=== PATIENT | female | born 1965 ===

== ENCOUNTER 2016-06-29 12:11 | Emergency (ER) | payer OTHER ==
[2016-06-29 12:18] VITALS: BMI 41.1
[2016-06-29] MEDS ORDERED: Sodium Chloride 0.9% 500 ML IV STA (12:57)
[2016-06-29] MEDS ORDERED: Sodium Chloride 0.9% 1,000 ML ONE (13:10)
[2016-06-29 13:14] LABS: BASO # 0.1 K/uL (0.0-0.2); BASO % 0.8 % (0.0-2.0); EOS # 0.2 K/uL (0.0-0.7); EOS % 1.9 % (0.0-4.0); HEMATOCRIT 38.2 % (34.0-47.0); LYMPH # 1.8 K/uL (1.0-4.3); LYMPH % 20.6 % (20.0-40.0); MEAN CELL VOLUME 84.5 fL (81.0-99.0); MEAN CORPUSCULAR HEMOGLOBIN 27.5 pg (27.0-31.0); MEAN CORPUSCULAR HGB CONC 32.6 g/dL (33.0-37.0); MEAN PLATELET VOLUME 9.3 fL (7.2-11.7); MONO # 0.5 K/uL (0.0-0.8); MONO % 5.9 % (0.0-10.0); WHITE BLOOD COUNT 8.8 K/uL (4.8-10.8)
[2016-06-29 13:22] LABS: CHLORIDE 101 mmol/L (98-107)
[2016-06-29 13:23] LABS: SODIUM 138 mmol/L (132-148)
[2016-06-29 13:25] LABS: ALB/GLOB RATIO 0.9 (1.0-2.1); ALKALINE PHOSPHATASE 122 U/L (38-126); ALT/SGPT 71 U/L (9-52); AST/SGOT 79 U/L (14-36); BILIRUBIN,TOTAL 0.6 mg/dL (0.2-1.3); BLOOD UREA NITROGEN 14 mg/dL (7-17); CARBON DIOXIDE 26 mmol/L (22-30); GFR AFRICAN-AMERICAN > 60; GLUCOSE,RANDOM 89 mg/dL (65-105); TOTAL PROTEIN 8.6 g/dL (6.3-8.3)
[2016-06-29 13:26] LABS: CALCIUM 8.7 mg/dl (8.6-10.4)
--- NOTE | 2016-06-29 14:02 | RAD ---
PROCEDURE: Radiographs of the Lumbar Spine. HISTORY: severe LBP, radiating R leg, leg weakness COMPARISON: No prior. FINDINGS: BONES: Normal alignment. No listhesis. No fracture. DISC SPACES: Unremarkable. OTHER FINDINGS: None. IMPRESSION: Unremarkable radiographs of the lumbar spine.
--- NOTE | 2016-06-29 14:10 | C.PDOC ---
History Of Present Illness 51 y/o female presents to the ED with complains of sudden lower back pain. Pt was walking this morning when she suddenly had severe lower back pain radiating to left side and down left leg. Pt was able to walk a few steps after when leg became weak, she was unable to walk after that. Pt denies any urinary symptoms, incontinence, numbness, chest pain, SOB, vomiting, headache or any other complaints. Time Seen by Provider: 06/29/16 12:35 Chief Complaint (Nursing): Lower Extremity Problem/Injury History Per: Patient History/Exam Limitations: no limitations Onset/Duration Of Symptoms: Hrs, Sudden Onset Current Symptoms Are (Timing): Still Present Severity: Severe Recent travel outside of the [place]: No Past Medical History Reviewed: Historical Data, Nursing Documentation, Vital Signs Vital Signs: Last Vital Signs Temp 97.8 F 06/29/16 17:20 Pulse 81 06/29/16 17:20 Resp 18 06/29/16 17:20 BP 118/78 06/29/16 17:20 Pulse Ox 95 06/29/16 17:57 Surgical History: Family History: States: Unknown Family Hx - Social History Hx Tobacco Use: No Hx Alcohol Use: No Hx Substance Use: No - Immunization History Hx Tetanus Toxoid Vaccination: No Hx Influenza Vaccination: No Hx Pneumococcal Vaccination: No Review Of Systems Except As Marked, All Systems Reviewed And Found Negative. Constitutional: Negative for: Fever Cardiovascular: Negative for: Chest Pain Respiratory: Negative for: Shortness of Breath Gastrointestinal: Negative for: Vomiting Genitourinary: Negative for: Dysuria, Frequency, Incontinence Neurological: Positive for: Weakness (left leg). Negative for: Numbness, Headache Physical Exam - Physical Exam Appears: Non-toxic, No Acute Distress Skin: Warm, Dry, No Rash Head: Atraumatic, Normacephalic Neck: Normal, Normal ROM, Supple Chest: Symmetrical Cardiovascular: Rhythm Regular Respiratory: Normal Breath Sounds, No Rales, No Rhonchi, No Wheezing Gastrointestinal/Abdominal: Soft, No Tenderness Back: Vertebral Tenderness (LS spine area), Paraspinal Tenderness (left LS spine area), Straight Leg Raising (unable to perform due to patient refusing to move her left leg) Extremity: Tenderness (left buttock) Neurological/Psych: Oriented x3, Normal Speech, Normal Cognition, No Normal Motor (decreased motor to left leg), No Normal Sensation (decreased sensation to left leg) ED Course And Treatment - Laboratory Results Result Diagrams: 06/29/16 13:12 06/29/16 13:12 O2 Sat by Pulse Oximetry: 95 (room air) Pulse Ox Interpretation: Normal - Other Rad XR L spine Interpretation: Accession No. : [id number]. Patient Name / ID : DENYS GALE / [id number]. Exam Date : 06/29/2016 13:06:36 ( Approved ). Study Comment : Sex / Age : F / 51Y. Creator : LUTHER CEE. Dictator : Lazaro Wen MD. Certified Drug Counselor : Therapeutic Specialist : Lazaro Wen MD. Approver2 : Report Date : 06/29/2016 13:36:01. My Comment : . PROCEDURE: Radiographs of the Lumbar Spine. HISTORY: severe LBP, radiating R leg, leg weakness. COMPARISON: No prior. FINDINGS: BONES: Normal alignment. No listhesis. No fracture. DISC SPACES: Unremarkable. OTHER FINDINGS: None. IMPRESSION: Unremarkable radiographs of the lumbar spine. - CT Scan/US MRI L spine Other Rad Studies (CT/US): Read By Radiologist, Radiology Report Reviewed CT/US Interpretation: Accession No. : [id number]. Patient Name / ID : DENYS GALE / [id number]. Exam Date : 06/29/2016 15:27:51 ( Approved ). Study Comment : Sex / Age : F / 51Y. Creator : armida rodríguez Dictator : Serg Pelayo. Certified Drug Counselor : Therapeutic Specialist : Serg Pelayo. Approver2 : Report Date : 06/29/2016 15:53:58. My Comment : . PROCEDURE: MR LUMBAR SPINE WITHOUT CONTRAST. HISTORY: LEFT LEG WEAKNESS, LB PAIN. COMPARISON: None available. TECHNIQUE: Multiecho multiplanar sequences were performed through the lumbar spine without the use of intravenous contrast. FINDINGS: Normal lumbar lordosis. Vertebral body heights are preserved. Marrow signal unremarkable. Conus medullaris unremarkable at the level of T12. No evidence of acute fracture or subluxation. Mild to moderate degenerative disc changes/ desiccation seen at L4-L5 and L5-S1. Paraspinal soft tissues are unremarkable. T12-L1: No disc herniation, spinal canal stenosis or neural foraminal narrowing. L1-2: No disc herniation, spinal canal stenosis or neural foraminal narrowing. L2-3: No disc herniation, spinal canal stenosis or neural foraminal narrowing. L3-4: No disc herniation, spinal canal stenosis or neural foraminal narrowing. L4-5: No disc herniation, spinal canal stenosis or neural foraminal narrowing. L5-S1: No disc herniation, spinal canal stenosis or neural foraminal narrowing. OTHER FINDINGS: None. IMPRESSION: No evidence of significant spinal or neural foraminal narrowing. Mild to moderate disc degenerative changes/ disc desiccation at L4-L5 and L5-S1. Progress Note: Plan: labs, XR L spine, IV fluids, MRI. Patient was tx with Toradol IV and IVF. On reassessment, patient is resting comfortably, with improvement of back pain. Patient remains afebrile, with no bony tenderness, extremity numbness or weakness, or abdominal pain. Patient is ambulatory in the emergency department with mild signs of discomfort. Patient was advised to follow up with physician/clinic in 1-2 days. Disposition - Disposition Referrals: [facility] [Outside] [facility] [Outside] Disposition: HOME/ ROUTINE Disposition Time: 17:55 Condition: IMPROVED Additional Instructions: Follow up with PMD within 1-2 days. Return to ED if feel worse. Prescriptions: oxyCODONE/Acetaminophen [Percocet 5/325 mg Tab] 1 tab PO QID PRN #20 tab PRN Reason: Pain Instructions: Lumbar Radiculopathy (ED) Print Language: DIVEHI - Clinical Impression Clinical Impression: Lumbar radiculopathy - PA / TRANSPORT ANALYST / Resident Statement MD/DO has reviewed & agrees with the documentation as recorded. - Scribe Statement The provider has reviewed the documentation as recorded by the Scribe Jc Jesus All medical record entries made by the Cainibe were at my direction and personally dictated by me. I have reviewed the chart and agree that the record accurately reflects my personal performance of the history, physical exam, medical decision making, and the department course for this patient. I have also personally directed, reviewed, and agree with the discharge instructions and disposition.
--- NOTE | 2016-06-29 17:07 | MRI ---
PROCEDURE: MR LUMBAR SPINE WITHOUT CONTRAST HISTORY: LEFT LEG WEAKNESS, LB PAIN COMPARISON: None available. TECHNIQUE: Multiecho multiplanar sequences were performed through the lumbar spine without the use of intravenous contrast. FINDINGS: Normal lumbar lordosis. Vertebral body heights are preserved. Marrow signal unremarkable. Conus medullaris unremarkable at the level of T12. No evidence of acute fracture or subluxation. Mild to moderate degenerative disc changes/desiccation seen at L4-L5 and L5-S1 Paraspinal soft tissues are unremarkable. T12-L1: No disc herniation, spinal canal stenosis or neural foraminal narrowing. L1-2: No disc herniation, spinal canal stenosis or neural foraminal narrowing. L2-3: No disc herniation, spinal canal stenosis or neural foraminal narrowing. L3-4: No disc herniation, spinal canal stenosis or neural foraminal narrowing. L4-5: No disc herniation, spinal canal stenosis or neural foraminal narrowing. L5-S1: No disc herniation, spinal canal stenosis or neural foraminal narrowing. OTHER FINDINGS: None. IMPRESSION: No evidence of significant spinal or neural foraminal narrowing. Mild to moderate disc degenerative changes/ disc desiccation at L4-L5 and L5-S1.
[2016-06-29 17:21] VITALS: BP 118/78; PULSE 81; RESP 18; TEMP 97.8
[2016-06-29 17:33] VITALS: O2SAT 95
== END 2016-06-29 18:04 | disposition home or self-care (01) ==
LOC: C.ER 12:11
DX: M54.16 Radiculopathy, lumbar region (principal)
CPT/HCPCS: 72100; 72148; 80053; 85025; 96361; 96374; 99284; J1885; J7040